=== PATIENT | female | born 1960 | race Caucasian/White ===

== ENCOUNTER 2022-12-23 09:50 | Emergency (ER) | payer BC ==
--- OUTSIDE RECORDS SUMMARY | 2022-12-23 09:54 | XMS REPORT | Continuity of Care Document ---
:[address] [facility] t Address [address] [place] [address] Care Team Providers Name Role Phone Adam Medina MD A Primary Care Physician [phone] Adam Medina MD Attending Clinician Leann Bui MD Attending Clinician Fay Randall MA Attending Clinician Unavailable Dipti Faye MA Attending Clinician Unavailable ADAM MEDINA Attending Clinician Unavailable Lab, Ang - Db Attending Clinician Unavailable Doctor Unassigned, [place] Attending Clinician Unavailable MARCO A MELCHOR Attending Clinician Unavailable DIEGO ZARATE Attending Clinician Unavailable MICHAEL HOOKS Attending Clinician Unavailable ESMER SIMONS Attending Clinician Unavailable ADAM MEDINA Admitting Clinician Unavailable DIEGO ZARATE Admitting Clinician Unavailable Payers Payer Name Policy Type Policy Number Effective Date Expiration Date Jeronimo MCALLISTER O [id number] 2014 00:00:00 Problems Condition Condition Condition Status Onset Resolution Last Treating Co mments Source Name Details Category Date Date Treatment Clinician Date Spinal Spinal Disease Active Univers arthritis arthritis 5-13 ity of 00:00: [place] [address] Medical Branch Neck and Neck and Disease Active Unive rs back pain back pain 5-10 ity of 00:00: [place] 00 Medical Branch Infection Infection Disease Recurre Me thodi due to due to nce 9-15 st Serratia Serratia 00:00: Hospit a marcescens marcescens 00 l (HCC) R (HCC) R HIP HIP 06/16/19. 06/16/19. CIPRO CIPRO 750BID to 750BID to 07/29/19 07/29/19 Infection Infection Disease Recurre Me thodi of of nce 8-14 st prosthetic prosthetic 00:00: Ho spita total hip total hip 00 l joint joint Wound Wound Disease Active Methodi dehiscence dehiscence 7-29 st 00:00: Hospita 00 l Status Status Disease Active Methodi post right post right 7-26 st hip hip 00:00: Hospita replacemen replacemen 00 l t t History of History of Disease Active M ethodi right hip right hip 7-05 st replacemen replacemen 00:00: Ho spita t t 00 l Arthritis Arthritis Disease Active Met hodi of right of right 5-10 st hip hip 00:00: Hospita 00 l History of History of Disease Active M ethodi bilateral bilateral 5-10 st knee knee 00:00: Hospita replacemen replacemen 00 l t t History of History of Disease Active M ethodi total hip total hip 5-10 st replacemen replacemen 00:00: Ho spita t, left t, left 00 l S/P S/P Disease Active 2017-11 [facility] RAUL-BSO RAUL-BSO 1- ity of 00:00: [place] 00 Medical Branch Dry eyes Dry eyes Disease Active Unive rs 7-03 ity of 00:00: [place] 00 Medical Branch Positive Positive Disease Active Unive rs NATASHA NATASHA 6-19 ity of (antinucle [place]antinucle [place] 00 Medical antibody) antibody) Bran ch 1:80 1:80 Dyslipidem Dyslipidem Disease Active U nivers ia ia 6-19 ity of 00:00: 00 Medical Branch At risk At risk Disease Active Univers for bone for bone 6-12 ity of density density 00:00: [place] loss loss Medical Branch 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 Disease Active Uni vers (current) (current) 6-12 ity of use of use of 00:00: [place] non-steroi non-steroi 00 Me dical chayo chayo Branch anti-infla anti-infla mmatories mmatories (nsaid) (nsaid) Essential Essential Disease Active Uni vers hypertensi hypertensi 6-11 it y of on, benign on, benign [place] GERD GERD Disease Active Univers (gastroeso (gastroeso 04-15 it y of phageal phageal 00:00: [place] reflux reflux 00 Medical disease) disease) Branch MVP MVP Disease Active Univers (mitral (mitral 04-15 ity of valve valve 00:00: [place] prolapse) prolapse) 00 [facility] Urinary Urinary Disease Active Univers incontinen incontinen 04-15 it y of ce ce 00:00: [place] 00 [facility] Total knee Total knee Disease Active U nivers replacemen replacemen 04-15 it y of t status t status 00:00: [place] 00 [facility] Branch Vitamin D Vitamin D Disease Active Uni vers deficiency deficiency 6-11 it y of 00:00: [place] 00 [facility] Er Migraines Migraines Disease Active Uni vers ity of [facility] [place] [facility] Seronegati Seronegati Disease Active U nivers ve ve ity of rheumatoid rheumatoid [place] arthritis arthritis [facility] Heart Heart Disease Active Univers murmur murmur ity of [facility] [place] [facility] Allergies, Adverse Reactions, Alerts Allergy Allergy Status Severity Reaction(s) Onset Inactive Treating Comm ents Source Name Type Date Date Clinician Petermeric Propensi Active GI Method i ty to Intolerance 7-30 st adverse 00:00: Hospita reaction 00 l s to drug CIPROFLO DRUG Active High Rash Univers XACIN INGREDI 9-12 ity of 00:00: [place] 00 Medical Branch Ciproflo Propensi Active Rash Univer s xacin ty to 12 ity of adverse 00:00: [place] reaction 00 Medical s Branch Adhesive Propensi Active Other (See (burn) Me thodi Tape-Ryley ty to Comments) 5-30 st icones adverse 00:00: Hospita reaction 00 l s to drug ADHESIVE DRUG Active High Other-Cmnt Univ ers TAPE-RYLEY 5-30 ity of ICONES 00:00: [place] [facility] Adhesive Propensi Active Other - See (burn) U nivers Tape-Ryley ty to comments 5-30 ity of icones adverse 00:00: [place] reaction 00 Medical s Branch Codeine Propensi Active Hives N&V Methodi ty to 5-10 st adverse 00:00: Hospita reaction 00 l s to drug Meperidi Propensi Active Rash N&V Method i ne ty to 5-10 st adverse 00:00: Hospita reaction 00 l s to drug Droperid Propensi Active Other (See "became M ethodi ol ty to Comments) [address] adverse 00:00: " had to Hospita reaction 00 be l s to admitted drug to the hospital Morphine Propensi Active Rash N&V Method i ty to 510 st adverse 00:00: Hospita reaction 00 l s to drug MEPERIDI DRUG Active High ITCHING Univers NE INGREDI 5-10 ity of 00:00: [place] [facility] Meperidi Propensi Active Rash N&V Univer s ne ty to 5-10 ity of adverse 00:00: [place] reaction Medical s Branch CODEINE DRUG Active High Hives Univers INGREDI 2-06 ity of 00:00: [place] [facility] MORPHINE DRUG Active High N/V Univers INGREDI 2-06 ity of 00:00: [place] [facility] Codeine Propensi Active Nausea N&V Univers ty to and/or 2-06 ity of adverse Vomiting 00:00: [place] reaction Medical s Branch Morphine Propensi Active Rash N&V Univer s ty to 2-06 ity of adverse 00:00: [place] reaction Medical s Branch DROPERID DRUG Active High EP Effects Univ ers OL INGREDI 05-30 ity of 00:00: [place] 00 Medical Branch MEPERIDI DRUG Active Rash Univers NE HCL INGREDI 05-30 ity of 00:00: [place] [facility] MORPHINE DRUG Active N/V Univers SULFATE INGREDI 05-30 ity of 00:00: [place] 00 Medical Branch Meperidi Propensi Active Nausea Univer s ne Hcl ty to and/or 05-30 ity of adverse Vomiting 00:00: [place] reaction 00 Medical s Branch Droperid Propensi Active Other - See "became Univers ol ty to comments 05-30 psychotic ity o f adverse 00:00: " had to [place] reaction 00 be Medical s admitted Branch to the hospital Morphine Propensi Active Rash Univer s Sulfate ty to 05-30 ity of adverse 00:00: [place] reaction 00 Medical s Branch Family History Family Member Diagnosis Comments Start Date Stop Date Source Natural brother Hypertension [facility] [place] Natural father [facility] Natural father COPD [facility] Natural father Heart failure [facility] [place] Natural father Hypertension [facility] Natural father Leukemia [facility] Natural mother Cancer [facility] Natural mother Hypertension [facility] mother Lung cancer [facility] Natural sister Hypertension [facility] Social History Social Habit Start Date Stop Date Quantity Comments Source History SDOH University o f Alcohol Frequency [place] M ed[facility] History SDOH University o f Alcohol Std [place] Medical Drinks Branch History SDOH University o f Alcohol Binge [place] [facility] al Branch Exposure to Not sure University of SARS-CoV-2 [facility] (event) Branch Alcohol intake 2022-05-02 2022-05-02 Current drinker Metho dist 00:00:00 00:00:00 of [facility] (finding) Tobacco use and 2019-04-03 2019-04-03 Smokeless tobacco Me thodist exposure 00:00:00 00:00:00 non-user Hospital Alcohol Comment 2019-04-03 2019-04-03 occasional [facility] 00:[facility] 00:00:00 Hospital Sex Ass[birth year] At [birth year] Universit y of 00:00:00 00:00:00 [facility] [place] [facility] Smoking Status Start Date Stop Date Source Never smoked tobacco [facility] Medications Ordered Filled Start Stop Current Ordering Indication Dosage Frequency Signature Comments Components Source Medication Medication Date Date Medication? Clinician (SIG) Name Name folic acid Yes [id number] 1mg Q.5D Take 1 Methodi (FOLVITE) 1 8-12 tablet (1 st MG tablet 00:00: mg total) Hos anmol 00 by mouth 2 l (two) times a day. pantothenic 2021- No QD Take by Me thodi acid, vit 05-[address] B5, 09:25: 00:00 daily. Hospita (PANTOTHENI 57 :00 l C ACID ORAL) Lactobacill 2021- No Q.5D Take by Me thodi us 05-[address] acidophilus 09:25: 00:00 (two) Hosp gabriella (PROBIOTIC 56 :00 times a l ORAL) day. OMEPRAZOLE 0 Yes QD Take by Meth blanca ORAL 05-[address] 09:15: nightly. Hospita 46 l acetaminoph Yes 500mg Take 500 M ethodi en - mg by st (TYLENOL) 09:15: mouth as Hosp gabriella 500 MG 46 needed for l tablet mild pain. multivit-mi Yes Take by Met hodi nerals/foli 05-[address] c acid 09:15: Hospita (DAILY 46 l MULTIPLE FOR WOMEN 50+ ORAL) cholecalcif Yes Q.5D Take by Met isaias ephraim, 05-[address] vitamin D3, 09:15: (two) Hospi ta (VITAMIN D3 46 times a l ORAL) day. KRILL Yes QD Take by Methodi OIL-OMEGA-3 05-[address] -DHA-EPA 09:15: daily. Hospita ORAL 46 l mv-min/vit Yes QD Take by Meth blanca C/glut/lysi 05-[address] ne/hb124 09:15: daily. Hospita (IMMUNE 46 l SUPPORT ORAL) methotrexat 2021- No [id number] 20mg Q7D Take 8 Methodi e 2.5 MG 05-02-[address] tablet 00:00: 04:59 (20 mg Hospita 00 :00 total) by l mouth once a week for 92 days. folic acid 2021- No [id number] 2mg QD Take 2 Methodi (FOLVITE) 1 05-02-12 tablets (2 s t MG tablet 00:00: 00:00 mg total) Ho spita 00 :00 by mouth l daily. methotrexat 2021- No [id number] TAKE 8 Methodi e 2.5 MG 5-18 05-[address] tablet 00:00: 00:00 MOUTH ONCE Hosp gabriella 00 :00 A WEEK l folic acid 2021- No [id number] 2mg QD Take 2 Methodi (FOLVITE) 1 3-24 -28 tablets (2 s t MG tablet 00:00: 00:00 mg total) Ho spita 00 :00 by mouth l daily. folic acid 2021- No [id number] 2mg QD Take 2 Methodi (FOLVITE) 1 3-18 -24 tablets (2 s t MG tablet 00:00: 00:00 mg total) Ho spita 00 :00 by mouth l daily. tiZANidine 2021- No 4mg Q8H Take 4 mg M ethodi (ZANAFLEX) 01-[address] 4 MG tablet 10:04: 00:00 every 8 Ho spita 55 :00 (eight) l hours as needed for muscle spasms. diclofenac 2021- No 2g Apply 2 g M ethodi (VOLTAREN) 01-[address] 1 % gel 10:04: 00:00 as needed. Hos anmol 52 :00 l diclofenac 2022- No [id number] Q.25D Apply Methodi (Voltaren) 01-[address] 1 % gel 00:00: 05:59 4 (four) Hospi ta 00 :00 times a l day. tiZANidine 2020-11 Yes [id number] 2mg Take 1 Univers 2 mg 1-19 capsule by ity of capsule 00:00: mouth 3 (three) Medical times Branch daily as needed for Muscle Spasms. tiZANidine 2020-11 Yes [id number] 2mg Take 1 Univers 2 mg 1-19 capsule by ity of capsule 00:00: mouth 3 [place] 00 (three) Medical times Branch daily as needed for Muscle Spasms. tiZANidine 2020-11 Yes [id number] 2mg Take 1 Univers 2 mg 1-19 capsule by ity of capsule 00:00: mouth 3 [place] 00 (three) Medical times Branch daily as needed for Muscle Spasms. tiZANidine 2020-11 Yes [id number] 2mg Take 1 Univers 2 mg 1-19 capsule by ity of capsule 00:00: mouth 3 [place] 00 (three) Medical times [place] daily as needed for Muscle Spasms. tiZANidine 2020-11 Yes [id number] 2mg Take 1 Univers 2 mg 1-19 capsule by ity of capsule 00:00: mouth 3 [place] 00 (three) Medical times [place] daily as needed for Muscle Spasms. methotrexat 2020-11- No [id number] 20mg Q7D Take 8 Methodi e 2.5 MG 0-29 05-[address] tablet 00:00: 00:00 (20 mg Hospita 00 :00 total) by l mouth once a week. folic acid 2020-11- No [id number] 2mg QD Take 2 Methodi (FOLVITE) 1 0-29 03-03 tablets (2 s t MG tablet 00:00: 00:00 mg total) Ho spita 00 :00 by mouth l daily. PROBIOTIC 2020-11 Yes Take by Unive rs ORAL 0-27 mouth. ity of 10:15: [address] KRILL 2020-11 Yes Take by Univers OIL-OMEGA-3 0-27 mouth. ity of -DHA-EPA 10:15: [address] VITAMIN D3 2020-11 Yes Take by Univ ers ORAL 0-27 mouth. ity of 10:15: [address] IMMUNE 2020-11 Yes Take by Univers SUPPORT 0-27 mouth. ity of ORAL 10:15: [address] DAILY 2020-11 Yes Take by Univers MULTIPLE 0-27 mouth. ity of FOR WOMEN 10:15: [place] [address]+ [address] PANTOTHENIC 2020-11 Yes Take by Uni vers ACID ORAL 0-27 mouth. ity of 10:15: [address] PROBIOTIC 2020-11 Yes Take by Unive rs ORAL 0-27 mouth. ity of 10:15: [address] KRILL 2020-11 Yes Take by Univers OIL-OMEGA-3 0-27 mouth. ity of -DHA-EPA 10:15: [address] VITAMIN D3 2020-11 Yes Take by Univ ers ORAL 0-27 mouth. ity of 10:15: [address] IMMUNE 2020-11 Yes Take by Univers SUPPORT 0-27 mouth. ity of ORAL 10:15: [address] DAILY 2020-11 Yes Take by Univers MULTIPLE 0-27 mouth. ity of FOR WOMEN 10:15: [place] 50+ [place] [address] Medical Branch PANTOTHENIC 2020-11 Yes Take by Uni vers ACID ORAL 0-27 mouth. ity of 10:15: [address] PROBIOTIC 2020-11 Yes Take by Unive rs ORAL 0-27 mouth. ity of 10:15: [address] KRILL 2020-11 Yes Take by Univers OIL-OMEGA-3 0-27 mouth. ity of -DHA-EPA 10:15: [address] Branch VITAMIN D3 2020-11 Yes Take by Univ ers ORAL 0-27 mouth. ity of 10:15: [address] IMMUNE 2020-11 Yes Take by Univers SUPPORT 0-27 mouth. ity of ORAL 10:15: [address] DAILY 2020-11 Yes Take by Univers MULTIPLE 0-27 mouth. ity of FOR WOMEN 10:15: [address] PANTOTHENIC 2020-11 Yes Take by Uni vers ACID ORAL 0-27 mouth. ity of 10:15: [address] PROBIOTIC 2020-11 Yes Take by Unive rs ORAL 0-27 mouth. ity of 10:15: [address] Branch KRILL 2020-11 Yes Take by Univers OIL-OMEGA-3 0-27 mouth. ity of -DHA-EPA 10:15: [address] VITAMIN D3 2020-11 Yes Take by Univ ers ORAL 0-27 mouth. ity of 10:15: [address] IMMUNE 2020-11 Yes Take by Univers SUPPORT 0-27 mouth. ity of ORAL 10:15: [address] DAILY 2020-11 Yes Take by Univers MULTIPLE 0-27 mouth. ity of FOR WOMEN 10:15: [place] [address] Medical Branch PANTOTHENIC 2020-11 Yes Take by Uni vers ACID ORAL 0-27 mouth. ity of 10:15: [address] PROBIOTIC 2020-11 Yes Take by Unive rs ORAL 0-27 mouth. ity of 10:15: [address] KRILL 2020-11 Yes Take by Univers OIL-OMEGA-3 0-27 mouth. ity of -DHA-EPA 10:15: [address] Branch VITAMIN D3 2020-11 Yes Take by Univ ers ORAL 0-27 mouth. ity of 10:15: [place] 42 Medical Branch IMMUNE 2020-11 Yes Take by Univers SUPPORT 0-27 mouth. ity of ORAL 10:15: [place] 42 Medical Branch DAILY 2020-11 Yes Take by Univers MULTIPLE 0-27 mouth. ity of FOR WOMEN 10:15: [place] 50+ ORAL 42 Medical Branch PANTOTHENIC 2020-11 Yes Take by Uni vers ACID ORAL 0-27 mouth. ity of 10:15: [place] 42 Medical Branch losartan 2020-11 Yes [id number] 100mg Take 1 Uni vers 100 mg 0-27 tablet by ity of tablet 00:00: mouth [place] 00 daily. Medical Branch amLODIPine 2020-11 Yes [id number] 10mg Take 1 Un jimbo 10 mg 0-27 tablet by ity of tablet 00:00: mouth [place] 00 daily. Medical Branch losartan 2020-11 Yes [id number] 100mg Take 1 Uni vers 100 mg 0-27 tablet by ity of tablet 00:00: mouth [place] 00 daily. Medical Branch amLODIPine 2020-11 Yes [id number] 10mg Take 1 Un jimbo 10 mg 0-27 tablet by ity of tablet 00:00: mouth [place] 00 daily. Medical Branch losartan 2020-11 Yes [id number] 100mg Take 1 Uni vers 100 mg 0-27 tablet by ity of tablet 00:00: mouth [place] 00 daily. Medical Branch amLODIPine 2020-11 Yes [id number] 10mg Take 1 Un jimbo 10 mg 0-27 tablet by ity of tablet 00:00: mouth [place] 00 daily. Medical Branch losartan 2020-11 Yes [id number] 100mg Take 1 Uni vers 100 mg 0-27 tablet by ity of tablet 00:00: mouth [place] 00 daily. Medical Branch amLODIPine 2020-11 Yes [id number] 10mg Take 1 Un jimbo 10 mg 0-27 tablet by ity of tablet 00:00: mouth [place] 00 daily. Medical Branch losartan 2020-11 Yes [id number] 100mg Take 1 Uni vers 100 mg 0-27 tablet by ity of tablet 00:00: mouth [place] 00 daily. Medical Branch amLODIPine 2020-11 Yes [id number] 10mg Take 1 Un jimbo 10 mg 0-27 tablet by ity of tablet 00:00: mouth [place] 00 daily. Medical Branch foLIC acid Yes 2mg Take 2 mg Un jimbo 1 mg tablet 9-16 by mouth ity of 00:00: daily. Medical Branch foLIC acid 2020-0 Yes 2mg Take 2 mg Un jimbo 1 mg tablet 9-16 by mouth ity of 00:00: daily. Medical Branch foLIC acid 2020-0 Yes 2mg Take 2 mg Un jimbo 1 mg tablet 9-16 by mouth ity of 00:00: daily. Medical Branch foLIC acid 2020-0 Yes 2mg Take 2 mg Un jimbo 1 mg tablet 9-16 by mouth ity of 00:00: daily. Medical Branch foLIC acid 2020-0 Yes 2mg Take 2 mg Un jimbo 1 mg tablet 9-16 by mouth ity of 00:00: daily. Medical Branch methotrexat 2020-0 Yes TAKE 6 Univ ers e 2.5 mg 8-20 TABLETS BY ity o f tablet 00:00: MOUTH ONE TIME PER Medical WEEK Branch methotrexat 2020-0 Yes TAKE 6 Univ ers e 2.5 mg 8-20 TABLETS BY ity o f tablet 00:00: MOUTH ONE TIME PER Medical WEEK Branch methotrexat 2020-0 Yes TAKE 6 Univ ers e 2.5 mg 8-20 TABLETS BY ity o f tablet 00:00: MOUTH ONE TIME PER Medical WEEK Branch methotrexat 2020-0 Yes TAKE 6 Univ ers e 2.5 mg 8-20 TABLETS BY ity o f tablet 00:00: MOUTH ONE TIME PER Medical WEEK Branch methotrexat 2020-0 Yes TAKE 6 Univ ers e 2.5 mg 8-20 TABLETS BY ity o f tablet 00:00: MOUTH ONE TIME PER Medical WEEK Branch omeprazole 2020-0 Yes 20mg Take 20 mg U nivers 20 mg 5-10 by mouth ity of capsule 09:41: daily. [place] [facility] omeprazole 2020-0 Yes 20mg Take 20 mg U nivers 20 mg 5-10 by mouth ity of capsule 09:41: daily. [place] [facility] Branch omeprazole 2020-0 Yes 20mg Take 20 mg U nivers 20 mg 5-10 by mouth ity of capsule 09:41: daily. [place] [facility] Er omeprazole 2020-0 Yes 20mg Take 20 mg U nivers 20 mg 5-10 by mouth ity of capsule 09:41: daily. [address] omeprazole Yes 20mg Take 20 mg U nivers 20 mg 5-10 by mouth ity of capsule 09:41: daily. [address] losartan Yes 100mg QD Take 100 Meth blanca (COZAAR) 4-[address] 100 MG 00:00: mouth Hospita tablet 00 every l morning. amLODIPine Yes 10mg QD Take 10 mg M ethodi (NORVASC) 3-[address] 10 mg 00:00: every Hospita tablet 00 morning. l triamcinolo 2021- No APPLY TO M ashli ne 12-[address] (KENALOG) 00:00: 00:00 AREA TWICE H ospita 0.1 % cream 00 :00 A DAY l Immunizations Ordered Filled Immunization Date Status Comments Sour e Immunization Name Name Pneumococcal 2013-11-05 Completed University o f Polysaccharide, 00:00:00 [facility] ical PPSV23 (PNEUMOVAX) Branch Td 2013-11-05 Completed University of 00:00:00 [facility] [place] [facility] Pneumococcal 2013-11-05 Completed University o f Polysaccharide, 00:00:00 [place] [facility] ical PPSV23 (PNEUMOVAX) Branch Td 2013-11-05 Completed University of 00:00:00 [facility] [place] [facility] Pneumococcal 2013-11-05 Completed University o f Polysaccharide, 00:00:00 [place] Med ical PPSV23 (PNEUMOVAX) Branch Td 2013-11-05 Completed University of 00:00:00 [facility] [place] [facility] Pneumococcal 2013-11-05 Completed University o f Polysaccharide, 00:00:00 [place] Med ical PPSV23 (PNEUMOVAX) Branch Td 2013-11-05 Completed University of 00:00:00 [facility] [place] [facility] Pneumococcal 2013-11-05 Completed University o f Polysaccharide, 00:00:00 [facility] ical PPSV23 (PNEUMOVAX) Branch TD, NOS 2013-11-05 Completed University of 00:00:00 [facility] [place] [facility] TDAP 2006-03-05 Completed University of 00:00:00 [facility] [place] [facility] TDAP 2006-03-05 Completed University of 00:00:00 [facility] [place] [facility] TDAP 2006-03-05 Completed University of 00:00:00 [facility] [place] [facility] TDAP 2006-03-05 Completed University of 00:00:00 [facility] [place] [facility] TDAP 2006-03-05 Completed University of 00:00:00 [facility] [place] [facility] Vital Signs Vital Name Observation Time Observation Value Comments Source Systolic blood 2021-09-23 17:34:00 134 mm[Hg] Univer sity of pressure [facility] [place] [facility] Diastolic blood 2021-09-23 17:34:00 85 mm[Hg] Unive rsity of pressure [facility] [place] [facility] Heart rate 2021-09-23 17:33:00 94 /min Universi ty [facility] [place] Respiratory rate 2021-09-23 17:33:00 20 /min Univ ersity of [facility] [place] [facility] Body height 2021-09-23 17:33:00 167.6 cm [facility] Body weight 2021-09-23 17:33:00 100.789 kg [facility] BMI 2021-09-23 17:33:00 35.86 kg/m2 [facility] Oxygen saturation in 2021-09-23 17:33:00 98 /min [facility] Arterial blood by [facility] Pulse oximetry Branch Systolic blood 2022-05-02 14:07:00 141 mm[Hg] [facility] pressure Diastolic blood 2022-05-02 14:07:00 88 mm[Hg] [facility] pressure Heart rate 2022-05-02 14:07:00 94 /min [facility] Body height 2022-05-02 14:07:00 167.6 cm [facility] Body weight 2022-05-02 14:07:00 98.544 kg [facility] BMI 2022-05-02 14:07:00 35.07 kg/m2 [facility] Oxygen saturation in 2022-05-02 14:07:00 98 /min [facility] Arterial blood by Pulse oximetry Procedures Procedure Date / Time Performing Clinician Source Performed CBC WITH PLATELET AND 2022-05-02 14:38:00 [facility] DIFFERENTIAL COMPREHENSIVE METABOLIC 2022-05-02 14:38:00 [facility] PANEL SEDIMENTATION RATE 2022-05-02 14:38:00 [facility] C-REACTIVE PROTEIN 2022-05-02 14:38:00 [facility] XR FOOT 2 VW RIGHT 2022-01-02 16:57:38 [facility] C-REACTIVE PROTEIN 2022-01-02 16:26:00 [facility] CBC WITH PLATELET AND 2022-01-02 16:26:00 [facility] DIFFERENTIAL COMPREHENSIVE METABOLIC 2022-01-02 16:26:00 [facility] PANEL SEDIMENTATION RATE 2022-01-02 16:26:00 [facility] US ABDOMEN COMPLETE 2021-10-04 23:41:00 Adam Medina [facility] Plan of Care Planned Activity Planned Date Details Comments Source Future Scheduled 2022-11-05 COVID-19 VACCINE (#1) [facility] Test 17:15:50 [code = COVID-19 VACCINE (#1)] Future Scheduled 2022-11-05 Hepatitis C screening [facility] Test 17:15:50 (procedure) [code = 663120208] Future Scheduled 2022-11-05 Screening for [facility] Test 17:15:50 malignant neoplasm of cervix (procedure) [code = 606168756] Future Scheduled 2022-11-05 BREAST CANCER [facility] Test 17:15:50 SCREENING [code = BREAST CANCER SCREENING] Future Scheduled 2022-11-05 COLONOSCOPY SCREENING [facility] Test 17:15:50 [code = COLONOSCOPY SCREENING] Future Scheduled 2022-11-05 SHINGLES VACCINES (1 [facility] Test 17:15:50 of 2) [code = SHINGLES VACCINES (1 of 2)] Future Scheduled 2022-11-05 INFLUENZA VACCINE [facility] [facility] 17:15:50 [code = INFLUENZA VACCINE] Encounters Start End Encounter Admission Attending Care Care Encounter Source Date/Time Date/Time Type Type Clinicians Facility Department ID 2021-09-02 Emergency [facility] [id number] Univers 00:41:17 [facility] 2022-10-30 2022-10-30 Refill DIAZ Medina 1.2.840.114 [id number] Univers 00:00:00 00:00:00 Wonjaylanful A [facility]13.10 [facility] 4.2.7.2.686 [place] WOODORW?BLEA [phone] Mt chidi [address] MEDICAL OFFICE BUILDING 2022-09-21 2022-09-21 Refill Hao, 1.2.840.1 [id number] Methodi 00:00:00 00:00:[address] [place] 3.430.2.7 Hospit a .3.389023 l .8 2022-06-16 2022-06-16 Refill Prakash, 1.2.840.1 [id number] Methodi 00:00:00 00:00:[address] 3.430.2.7 Hospit a .3.702198 l .8 2022-06-15 2022-06-15 Refill Prakash, 1.2.840.1 [id number] Methodi 00:00:00 00:00:[address] 3.430.2.7 Hospit a .3.246930 l .8 2022-05-02 2022-05-02 Office Hao, 1.2.840.1 [id number] 7191 Methodi 09:00:00 09:34:59 Visit Leann 63368.1.[address] [place] 3.430.2.7 Hospit a .3.078312 l .8 2022-05-02 2022-05-02 Outpatient [facility] [id number] 005 [place] 00:00:00 00:00:[address] 2022-05-02 2022-05-02 Travel 1.2.840.1 1.2.970.736 [id number] Methodi 00:00:00 00:00:[address] 3.430.2.7 0.2.7.3.698 Ho spita .3.798016 084.8 l .8 2022-03-22 2022-03-22 Refill Hao, 1.2.840.1 [id number] 4568 Methodi 00:00:00 00:00:[address] [place] 3.430.2.7 Hospit a .3.469645 l .8 2022-01-26 2022-01-26 Refill [place], 1.2.840.1 [id number] 21 [id number] Methodi 00:00:00 00:00:[address] 3.430.2.7 Hospit a .3.792027 l .8 2022-01-05 2022-01-05 Refill [facility], 1.2.840.1 [id number] 3877 Methodi 00:00:00 00:00:[address] [place] 3.430.2.7 Hospit a .3.742091 l .8 2022-01-02 2022-01-02 [facility] 1.2.840.1 [id number] Methodi 10:45:44 23:59:00 Encounter Leann 01982.1.1 [address] [place] 3.430.2.7 Hospit a .3.312461 l .8 2022-01-02 2022-01-02 [place] 80942.2.840.1 [id number] 0809 Methodi 09:40:00 10:18:25 Visit Leann 90885.1.[address] [place] 3.430.2.7 Hospit a .3.395385 l .8 2022-01-02 2022-01-02 Travel 1.2.840.1 2.208.059 [id number] 026010 Methodi 00:00:00 00:00:[address] 3.430.2.7 0.2.7.3.698 Ho spita .3.788509 084.8 l .8 2022-01-02 2022-01-02 Outpatient [facility] [id number] 009 [place] 00:00:00 00:00:[address] 2022-01-02 2022-01-02 Outpatient [facility] [id number] 799 [place] 00:00:00 00:00:00 [facility] 2021-11-09 2021-11-09 [facility] 1.2.840.114 [id number] [facility] 00:00:00 00:00:00 Wondiful A HEALTH 350.1.13.10 ity of [place] 4.2.7.2.686 [place] WOODROW?BLEA [phone] [address] MEDICAL OFFICE [facility] 2021-10-04 2021-10-04 [facility] [id number] Univers 17:02:35 23:59:00 WONDIFUL ity o f [facility] 2021-10-04 2021-10-04 Hospital [facility] 1.2.996.294 [id number] 9309 [facility] 17:02:35 23:59:00 Encounter Wondiful A [place] 350.1.13.10 ity of [place] 4.2.7.2.686 [facility] [id number] [facility] [address] [place] [address] 2021-10-04 2021-10-04 Outpatient R DAMIR [facility] [id number] Univers 00:00:00 00:00:00 WONDIFUL ity o f [facility] 2021-09-24 2021-09-24 Case [facility] 1.2.840.114 [id number] Univers 00:00:00 00:00:00 Management Wondiful A HEALTH 350.1.13.10 ity of [place] 4.2.7.2.686 [place] WOODROW?BLEA [phone] [address] MEDICAL OFFICE [facility] 2021-09-23 2021-09-23 Outpatient R DAMIR [facility] [id number] Univers 12:30:00 12:30:00 WONDIFUL ity o f [facility] 2021-09-23 2021-09-23 Sleep Scientist Lab, Ang - Db [facility] 1.2.840.1 14 [id number] Univers 12:11:19 12:26:19 Visit Adam Medina A HEALTH 350.1.13.1 0 ity of [place] 4.2.7.2.686 [place]ODROW?BLEA [phone] Mt nathanielrambo EMERY [address] MEDICAL OFFICE BUILDING 2021-09-23 2021-09-23 Office [facility] 1.2.840.114 [id number] Univers 11:16:36 12:08:53 Visit Wonjaylanful A HEALTH 350.1.13.10 ity of [place] 4.2.7.2.686 [place] WOODROW?BLEA [phone] Mt chidi [facility] [address] MEDICAL OFFICE [facility] 2021-09-23 2021-09-23 Outpatient [facility] [id number] Univers 11:15:00 12:08:53 WONDIFUL ity o f [facility] 2021-09-15 2021-09-15 Outpatient [facility] [id number] Univers 10:40:48 23:59:00 WONDIFUL ity o f [facility] 2021-09-15 2021-09-15 Hospital [facility] 1.2.776.914 [id number] Univers 10:40:00 23:59:00 Encounter Wonjaylanful A [place] 350.1.13.10 ity of [place] 4.2.7.2.686 [place] [id number] [facility] [address] 2021-09-15 2021-09-15 Orders Doctor SUMIT 1.2.840.114 [id number] Univers 00:00:00 00:00:00 Only Unassigned, ARASH 350.1.13.10 ity of [place] [facility] 4.2.7.2.686 [place] [phone] [facility] 00[address] Branch 2021-09-02 2021-09-02 Outpatient [facility] [id number] 458 [place] 00:00:00 00:00:00 LEANN 774 Tatyo jaylan blanco 2021-08-31 2021-08-31 Sleep Scientist Lab, Ang - Db [facility] 1.2.840.1 14 [id number] Univers 10:34:17 10:49:17 Visit Adam Medina Health 350.1.13.1 0 ity of [place] 4.2.7.2.686 [place] Woodrow?Blea [phone] Mt chidi emery [address] Medical Office Building 2021-08-31 2021-08-31 Office Damir [facility] 1.2.840.114 [id number] Univers 09:33:16 10:32:26 Visit Wondiful A HEALTH 350.1.13.10 ity of [place] 4.2.7.2.686 [place] WOODROW?BLEA [phone] Mt chidi EMERY [address] MEDICAL OFFICE BUILDING 2021-08-31 2021-08-31 Outpatient R DAMIR [facility] [id number] Univers 09:30:00 10:32:26 WONDIFUL ity o f [facility] 2021-08-31 2021-08-31 Orders Doctor SUMIT 1.2.840.114 [id number] Univers 00:00:00 00:00:00 Only Unassigned, ARASH 350.1.13.10 ity of [place] [facility] 4.2.7.2.686 [place] [phone] [address] 2021-08-13 2021-08-13 Refill [facility] 1.2.840.114 [id number] Univers 00:00:00 00:00:00 Wondiful A Health 350.1.13.10 ity of [place] 4.2.7.2.686 [place] Professio [phone] [facility] [address] [place] [address] Office Building One 2021-06-03 2021-06-03 Outpatient R DAMIR [facility] [id number] Univers 15:30:00 15:30:00 WONDIFUL ity o f [facility] 2021-06-03 2021-06-03 Outpatient [facility] [id number] [address] [place] [address] 00:00:00 00:00:00 M[address]AMMED [address] 2021-03-14 2021-03-14 Outpatient R DAMIR [facility] [id number] Univers 09:15:00 09:15:00 WONDIFUL ity o f [facility] 2021-02-14 2021-02-14 Outpatient R DAMIR [facility] [id number] Univers 15:45:00 15:45:00 WONDIFUL ity o f [facility] 2020-08-10 2020-08-10 Outpatient R JILL [facility] ACO [id number] Univers 00:00:00 00:00:00 MARCO A henson [facility] 2020-08-04 2020-08-04 Outpatient Rocio MEDINA [facility] [id number] Univers 10:33:28 23:59:00 WONDIFUL ity o f [facility] 2020-08-04 2020-08-04 Outpatient Rocio MEDINA [facility] [id number] Univers 00:00:00 00:00:00 WONDIFUL ity o f [facility] 2020-07-21 2020-07-21 Outpatient R DAMIR [facility] [id number] Univers 09:00:00 09:00:00 WONDIFUL ity o f [facility] 2020-07-20 2020-07-20 Outpatient Rocio MEDNIA [facility] [id number] Univers 09:30:00 09:30:00 WONDIFUL ity o [facility] 2020-04-15 2020-04-15 Emergency X YARIMA, [facility] ERT [id number] Univers 19:27:09 21:36:00 DIEGO [facility] 2019-09-10 2019-09-10 Outpatient R NEVAMICHAEL [facility] [id number] Univers 14:00:00 14:48:31 [facility] 2019-09-04 2019-09-04 Outpatient Rocio KRISTYN [facility] [id number] Univers 13:10:00 13:10:00 ESMER anette [facility] 2019-08-05 2019-08-05 Outpatient Rocio MEDINA [facility] [id number] Univers 14:15:00 15:12:29 WONDIFUL ity o [facility] 2019-07-17 2019-07-17 Outpatient Rocio MEDINA [facility] [id number] Univers 11:30:00 12:27:18 WONDIFUL ity o [facility] Results Test Description Test Time Test Comments Results Result Comments Source Comprehensive metabolic panel 2022-05-03 14:10:00 Test Item Value Reference Range Interpretation Comme nts Glucose (test code = 109 mg/dL 65-99 H 2345-7) BUN (test code = 3094-0) 18 mg/dL 8-27 Creatinine (test code = 0.93 mg/dL 0.57-1.00 2160-0) eGFR (test code = 8257) 69 mL/min/1.73 >=59 BUN/creatinine ratio (test 19 11-01 code = 3097-3) Sodium (test code = 142 mmol/L 316-523 3344-2) Potassium (test code = 4.0 mmol/L 3.5-5.2 2823-3) Chloride (test code = 101 mmol/L 96-106 2075-0) CO2 (test code = 2027-9) 23 mmol/L 20-29 Calcium (test code = 9.9 mg/dL 8.7-10.3 72776-7) Protein (test code = 7.1 g/dL 6.0-8.5 2885-2) Albumin, S (test code = 4.9 g/dL 3.8-4.8 H 1751-7) Globulin, total (test code 2.2 g/dL 1.5-4.5 = 90661-7) Albumin/globulin ratio 2.2 1.2-2.2 (test code = 1759-0) Total bilirubin (test code 0.7 mg/dL 0.0-1.2 = 1974-2) Alkaline phosphatase (test 143 See_Comment H [Automated message] code = 6768-6) The system [employer] [facility] generated this result transmitted ref erence range: 44 - 121 IU/L. The reference r angie was not used to int erpret this result as normal/abnormal . AST (test code = 1920-8) 19 See_Comment [A utomated message] The system [employer] generated this result transmitted ref erence range: 0 - 40 I U/L. The reference range was not used to interpr et this result as normal/abnormal . ALT (test code = 1742-6) 23 See_Comment [A utomated message] The system [employer] generated this result transmitted ref erence range: 0 - 32 I U/L. The reference range was not used to interpr et this result as normal/abnormal . MARCY (test code = MARCY) Performed at: [address] [place] [address] [id number] Director: Pilo Pfeiffer MD, Phone: [phone] Lab Interpretation (test Abnormal code = 42646-9) [facility]-reactive [id number] 14:10:00 Test Item Value Reference Range Interpretation Comments CRP (test code = 4 mg/L 0-1988-03) MARCY (test code = Performed at: ) [facility] [address] [place], [place] [id number] Director: Pilo Pfeiffer MD, Phone: [phone] [facility] with platelet and [id number] 14:10:00 Test Item Value Reference Range Interpretation Comments WBC (test code = 8.8 See_Comment [Automated 5848-2) message] The system which generated this result transmit brenda reference range : 3.4 - 10.8 x10E3/uL. The reference range was not used to interpret this result as normal/abnormal . RBC (test code = 4.93 See_Comment [Automated 583-8) message] The system which generated this result transmit brenda reference range : 3.77 - 5.28 x10E6/uL. The reference range was not used to interpret this result as normal/abnormal . HGB (test code = 14.6 g/dL 11.1-15.9 718-7) HCT (test code = 43.6 % 34.0-46.6 4544-3) MCV (test code = 88 fL 79-97 787-2) MCH (test code = 29.6 pg 26.6-33.0 785-6) MCHC (test code = 33.5 g/dL 31.5-35.7 786-4) RDW (test code = 13.2 % 11.7-15.4 788-0) Platelet count 282 See_Comment [Automated (test code = 777-3) message] The system which generated this result transmit brenda reference range : 150 - 450 x10E3/uL. The reference range was not used to interpret this result as normal/abnormal . Neutrophils (test 66 % Not Estab. code = 770-8) Lymphocytes (test 21 % Not Estab. code = 736-9) Monocytes (test 9 % Not Estab. code = 5905-5) Eosinophils (test 2 % Not Estab. code = 713-8) Basophils (test 1 % Not Estab. code = 706-2) Neutrophils, 5.9 See_Comment [Automated absolute (test code message] The = 751-8) system which generated this result transmit brenda reference range : 1.4 - 7.0 x10E3/uL. The reference range was not used to interpret this result as normal/abnormal . Lymphocytes, 1.8 See_Comment [Automated absolute (test code message] The = 731-0) system which generated this result transmit brenda reference range : 0.7 - 3.1 x10E3/uL. The reference range was not used to interpret this result as normal/abnormal . Monocytes, absolute 0.8 See_Comment [Automa brenda (test code = 742-7) message] The system which generated this result transmit brenda reference range : 0.1 - 0.9 x10E3/uL. The reference range was not used to interpret this result as normal/abnormal . Eosinophils, 0.2 See_Comment [Automated absolute (test code message] The = 711-2) system which generated this result transmit brenda reference range : 0.0 - 0.4 x10E3/uL. The reference range was not used to interpret this result as normal/abnormal . Basophils, absolute 0.1 See_Comment [Automa brenda (test code = 704-7) message] The system which generated this result transmit brenda reference range : 0.0 - 0.2 x10E3/uL. The reference range was not used to interpret this result as normal/abnormal . Immature 1 % Not Estab. granulocytes (test code = 13848-1) Immature 0.0 See_Comment [Automated granulocytes, message] The absolute (test code system w [facility] = 09954-1) generated this result transmit brenda reference range : 0.0 - 0.1 x10E3/uL. The reference range was not used to interpret this result as normal/abnormal . MARCY (test code = Performed at: MARCY) - [facility] [address] [place] [id number] Director: Pilo Pfeiffer MD, Phone: [phone] [facility] [id number] 14:10:00 Test Item Value Reference Range Interpretation Comments Sedimentation rate 15 See_Comment [Automat ed (test code = 4537-7) message ] The system which generated this result transmitted reference range : 0 - 40 mm/hr. T he reference range was not used to interpret this result as normal/abnormal . MARCY (test code = Performed at: [facility]) - [facility] [place], [place] [id number] Director: Pilo Pfeiffer MD, Phone: [phone] [facility]
[2022-12-23] MEDS ORDERED: ACETAMINOPHEN 500 MG TAB ONE (10:09)
--- NOTE | 2022-12-23 11:11 | RAD REPORT ---
EXAM DESCRIPTION: RAD - Hand Left 3 View - 12/23/2022 10:58 am CLINICAL HISTORY: PAIN COMPARISON: No comparisons FINDINGS/IMPRESSION: No acute fracture. No malalignment. No significant focal degenerative changes.
--- NOTE | 2022-12-23 11:19 | EDPHYS ---
Physician Documentation [facility] Name: Patti Clark Age: 62 yrs Sex: Female : 1960 Arrival Date: 12/23/2022 Time: 09:54 Bed 20 Private MD: Ashok Crowe ED Physician Rigoberto Sullivan HPI: 12/23 10:43 This 62 yrs old Female presents to ER via Ambulatory with complaints of Hand Pain, Fall rt Injury. 10:43 Patient presents to the ED with an injury to the left index finger. Patient states that rt she fell while she had her hand on a trash can handle. She states that this hyperextended her index finger backwards. She denies any other significant injury. Pain is aching nature, nonradiating, mild in severity, no other aggravating or alleviating factors.. Historical: - Allergies: 10:12 Demerol; kr3 10:12 Morphine; kr3 10:12 Codeine; kr3 - PMHx: 10:15 Hypertensive disorder; kr3 - PSHx: 10:15 bilateral knee replacement; bilateral hip replacement; right wrist repair; kr3 - Immunization history:: Adult Immunizations unknown. - Social history:: Smoking status: Patient denies any tobacco usage or history of. - Family history:: not pertinent. ROS: 10:43 Constitutional: Negative for fever, chills, and weight loss, Neck: Negative for injury, rt pain, and swelling, Skin: Negative for injury, rash, and discoloration, Neuro: Negative for headache, weakness, numbness, tingling, and seizure, Psych: Negative for depression, anxiety, suicide ideation, homicidal ideation, and hallucinations. 10:43 MS/extremity: Positive for injury or acute deformity, Negative for laceration. Exam: 10:43 Constitutional: This is a well developed, well nourished patient who is awake, alert, rt and in no acute distress. Head/Face: Normocephalic, atraumatic. Skin: Warm, dry with normal turgor. Normal color with no rashes, no lesions, and no evidence of cellulitis. Neuro: Awake and alert, GCS 15, oriented to person, place, time, and situation. Cranial nerves II-XII grossly intact. Motor strength 5/5 in all extremities. Sensory grossly intact. Cerebellar exam normal. Normal gait. Psych: Awake, alert, with orientation to person, place and time. Behavior, mood, and affect are within normal limits. 10:43 Musculoskeletal/extremity: Mild swelling at the left MCP, tenderness at that region, good capillary refill, good transportation worker strength, patient has full range of motion with pain. No other swelling, deformity, tenderness to palpation. Vital Signs: 09:54 BP 172 / 100; Pulse 103; Resp 18 S; Temp 98.0(TE); Pulse Ox 99% on R/A; Weight 99.79 kg aa5 (R); Height 5 ft. 6 in. (167.64 cm) (R); 09:54 Body Mass Index 35.51 (99.79 kg, 167.64 cm) aa5 MDM: 10:04 Patient medically screened. rt 11:19 Differential diagnosis: dislocation, closed fracture, contusion. Data reviewed: vital rt signs, nurses notes, radiologic studies. I considered the following discharge prescriptions or medication management in the emergency department Medications were administered in the Emergency Department. See MAR. Independent interpretation of the following test(s) in the Emergency Department X-Ray: My interpretation is No fractures identified on my interpretation of the x-ray. Counseling: I had a detailed discussion with the patient and/or guardian regarding: the historical points, exam findings, and any diagnostic results supporting the discharge/admit diagnosis, radiology results, the need for outpatient follow up. 12/23 10:05 Order name: Hand Left 3 View XRAY; Complete Time: 11:14 rt Administered Medications: 10:09 Drug: Tylenol 1000 mg Route: PO; kr3 12:01 Follow up: Response: No adverse reaction kr3 Disposition Summary: 12/23/22 11:18 Discharge Ordered Location: Home rt Condition: Stable rt Diagnosis - Contusion of left hand rt Followup: rt - With: Ashok Crowe MD - When: 5 - 6 days - Reason: Discharge Instructions: - Discharge Summary Sheet rt - Contusion rt Forms: - Medication Reconciliation Form rt - Thank You Letter rt - Antibiotic Education rt - Prescription Opioid Use rt Signatures: Dispatcher [employer] Elvie Angulo RN RN kr3 Rigoberto Sullivan MD MD rt
--- NOTE | 2022-12-23 11:19 | ER ---
Nurse's Notes [facility] Name: Patti Clark Age: 62 yrs Sex: Female : 1960 Arrival Date: 12/23/2022 Time: 09:54 Bed 20 Private MD: Ashok Crowe Diagnosis: Contusion of left hand Presentation: 12/23 09:54 Chief complaint: Patient states: "I was taking the garbage can out and I fell forward". aa5 Pt c/o pain to left fingers. Pt reports hitting head on garbage can, denies LOC. Reports bruising to legs. 09:54 Coronavirus screen: At this time, the client does not indicate any symptoms associated aa5 with coronavirus-19. Ebola Screen: Patient denies travel to an Ebola-affected area in the 21 days before illness onset. Initial Sepsis Screen: Does the patient meet any 2 criteria? HR > 90 bpm. Does the patient have a suspected source of infection? No. Patient's initial sepsis screen is negative. Risk Assessment: Do you want to hurt yourself or someone else? Patient reports no desire to harm self or others. Onset of symptoms was December 22, 2022 at 11:00. 09:54 Acuity: RYLEE 4 aa5 09:54 Method Of Arrival: Ambulatory aa5 Triage Assessment: 11:59 General: Appears in no apparent distress. uncomfortable, Behavior is calm, cooperative, kr3 appropriate for age. Pain: Complains of pain in left hand. EENT: No signs and/or symptoms were reported regarding the EENT system. Neuro: Level of Consciousness is awake, alert, obeys commands, Oriented to person, place, time, situation. Cardiovascular: Patient's skin is warm and dry. Respiratory: Airway is patent Respiratory effort is even, unlabored, Respiratory pattern is regular, symmetrical. GI: No signs and/or symptoms were reported involving the gastrointestinal system. : No signs and/or symptoms were reported regarding the genitourinary system. Derm: No signs and/or symptoms reported regarding the dermatologic system. Musculoskeletal: Reports pain in left hand. Historical: - Allergies: 10:12 Demerol; kr3 10:12 Morphine; kr3 10:12 Codeine; kr3 - PMHx: 10:15 Hypertensive disorder; kr3 - PSHx: 10:15 bilateral knee replacement; bilateral hip replacement; right wrist repair; kr3 - Immunization history:: Adult Immunizations unknown. - Social history:: Smoking status: Patient denies any tobacco usage or history of. - Family history:: not pertinent. Screenin:[facility] ED Fall Risk Assessment (Adult) History of falling in the last 3 months, kr3 including since admission Yes- single mechanical fall (1 pt) Confusion or Disorientation No (0 pts) Intoxicated or Sedated No (0 pts) Impaired Gait No (0 pts) Mobility Assist Device Used No (0 pt) Altered Elimination No (0 pt) Score/Fall Risk Level 0 - 2 = Low Risk Oriented to surroundings, Maintained a safe environment, Educated pt \\T\\ family on fall prevention, incl call for assistance when getting out of bed, Assessed \\T\\ reinforced patient's understanding of fall precautions, Hourly rounding (assess needs \\T\\ fall precautionary measures) done. Abuse screen: Denies threats or abuse. Nutritional screening: No deficits noted. Tuberculosis screening: No symptoms or risk factors identified. Vital Signs: 09:54 BP 172 / 100; Pulse 103; Resp 18 S; Temp 98.0(TE); Pulse Ox 99% on R/A; Weight 99.79 kg aa5 (R); Height 5 ft. 6 in. (167.64 cm) (R); 09:54 Body Mass Index 35.51 (99.79 kg, 167.64 cm) aa5 ED Course: 09:54 Patient arrived in ED. am2 09:54 Rigoberto Sullivan MD is Attending Physician. rt 09:54 Ashok Crowe MD is Private Physician. am2 09:54 Arm band placed on Patient placed in an exam room, on a stretcher. aa5 10:00 Bed in low position. Call light in reach. Side rails up X 1. kr3 10:04 Triage completed. aa5 10:12 Elvie Rondon, PIPER is Primary Nurse. kr3 10:59 Hand Left 3 View XRAY In Process Unspecified. EDMS 11:18 Ashok Crowe MD is Referral Physician. rt 12:00 No provider procedures requiring assistance completed. Patient did not have IV access kr3 during this emergency room visit. Administered Medications: 10:09 Drug: Tylenol 1000 mg Route: PO; kr3 12:01 Follow up: Response: No adverse reaction kr3 Medication: 12:01 VIS not applicable for this client. kr3 Outcome: 11:18 Discharge ordered by . rt 11:28 Patient left the ED. kr3 11:30 Discharged to home ambulatory. kr3 11:30 Condition: stable 11:30 Discharge instructions given to patient, Instructed on discharge instructions, follow up and referral plans. Demonstrated understanding of instructions, follow-up care. Signatures: Dispatcher [employer] EDHoa Rubio, RN RN [email or web address] Bhumika Yi Kelley, RN RN kr3 Rigoberto Sullivan MD MD rt
[2022-12-23 11:36] VITALS: BP 172/100; TEMP 98; O2SAT 99
== END 2022-12-23 11:28 | disposition home or self-care (01) ==
LOC: ER 09:50
DX: S60.222A Contusion of left hand, initial encounter (principal); I10 Essential (primary) hypertension; Z88.5 Allergy status to narcotic agent
CPT/HCPCS: 99283